=== PATIENT | female | born 1980 | race Caucasian/White ===

== ENCOUNTER 2025-07-19 19:54 | Emergency (ER) | payer MEDICAID ==
[~2025-07-19] VITALS: Ht 165.1 cm; Wt 88.5 kg
[2025-07-19 19:59] VITALS: BP 126/74
[2025-07-19] MEDS ORDERED: LEVO75TA7 PO (20:08)
[2025-07-19] MEDS ORDERED: FAMOTIDINE. 20 MG/2 ML VIAL IV ONE (20:30)
[2025-07-19] MEDS ORDERED: KETOROLAC TROMETHAMINE 15 MG INJ ONE (20:30)
[2025-07-19 20:35] LABS: PLATELET COUNT (AUTO) 324 K/uL (179-408); RED BLOOD CELL COUNT(AUTO) 4.58 MIL/uL (3.63-4.92); RED CELL DISTRIBUTION WIDTH 13.3 % (12.3-17.7); WHITE BLOOD COUNT (AUTO) 10.7 K/uL (3.8-11.8)
[2025-07-19] MEDS: IV NS 1000 ML 1,000 ML IV ONE (20:37)
[2025-07-19] MEDS: FAMOTIDINE. 20 MG/2 ML VIAL IV ONE (20:37)
[2025-07-19] MEDS: KETOROLAC TROMETHAMINE 15 MG INJ IVP ONE (20:37)
[2025-07-19 20:41] LABS: CREATININE 0.7 mg/dL (0.6-1.3); SODIUM SERUM 142.0 mmol/L (136-145); UREA NITROGEN, BLOOD 12.0 mg/dL (7-18)
[2025-07-19 20:47] LABS: ASPARTATE AMINOTRANSFERASE 35.0 U/L (15-37); TOTAL PROTEIN, SERUM 7.8 g/dL (6.4-8.2)
[2025-07-19 20:51] LABS: *BILIRUBIN,URIN NEGATIVE (NEGATIVE); *BLOOD, URINE TRACE (NEGATIVE); *CLARITY,URINE CLEAR (CLEAR); *KETONES,URINE NEGATIVE (NEGATIVE); *PROTEIN,URINE NEGATIVE (NEGATIVE); *UROBILINOGEN,URINE 0.2 E.U./dl (NORMAL); LEUKOCYTE ESTERASE ,URINE NEGATIVE (NEGATIVE); NITRITE, URINE NEGATIVE (NEGATIVE); UGLUCOSE NEGATIVE (NEGATIVE)
[2025-07-19 20:53] LABS: *COLOR,URINE LIGHT YELLOW (YELLOW)
[2025-07-19 20:54] LABS: *URINE HCG, QUAL NEGATIVE (NEGATIVE)
[2025-07-19 21:06] LABS: SQUAMOUS EPITHELIAL CELL,UR FEW /HPF (NONE SEEN)
[2025-07-19] MEDS ORDERED: DICY10CA13 PO (22:16)
[2025-07-19 22:33] VITALS: BP 122/79; O2SAT 98
== END 2025-07-19 22:30 | disposition home or self-care (01) ==
LOC: ER 19:59
DX: R10.9 Unspecified abdominal pain (principal); R11.2 Nausea with vomiting, unspecified; K92.1 Melena; K60.2 Anal fissure, unspecified; K57.30 Diverticulosis of large intestine without perforation or abscess without bleeding; J45.909 Unspecified asthma, uncomplicated; E06.3 Autoimmune thyroiditis; Z79.890 Hormone replacement therapy; Z88.7 Allergy status to serum and vaccine; Z90.49 Acquired absence of other specified parts of digestive tract
CPT/HCPCS: 99285; 74176; 96374; 96361; 96375; 82270; 80076; 80048; 81001; 84703; 83690; 85025; 85730; J1885; J1308; J7040; A4606; A4663